=== PATIENT | female | born 1985 | race Caucasian/White ===

== ENCOUNTER 2018-02-24 20:31 | Emergency (ER) | payer OTHER ==
[~2018-02-24] VITALS: Ht 160 cm; Wt 95.7 kg
[2018-02-24 21:07] VITALS: Ht 160 cm; Wt 95.7 kg
[2018-02-24 22:03] LABS: PLATELET COUNT 332 x10^3mcL (130-400); RED CELL DISTRIBUTION WIDTH 13.5 % (11.5-14.5)
[2018-02-24 22:18] LABS: CALCIUM 8.5 mg/dL (8.5-10.1); CARBON DIOXIDE 23.8 mmol/L (21-32); CHLORIDE SERUM 107 mmol/L (98-107); CREATININE SERUM 0.8 mg/dL (0.6-1.0); GFR1 > 60 mL/min; GLUCOSE SERUM 106 mg/dL (74-106); POTASSIUM SERUM 3.5 mmol/L (3.5-5.1); SODIUM SERUM 142 mmol/L (136-145)
[2018-02-24 22:22] LABS: ALBUMIN 3.7 g/dL (3.4-5.0); ALKALINE PHOSPHATASE 78 U/L (46-116); ALT/SGPT 67 U/L (14-59); AMYLASE 40 U/L (25-115); AST/SGOT 39 U/L (15-37); BILIRUBIN TOTAL 0.73 mg/dL (0.20-1.00); LIPASE 91 IU/L (73-393)
[2018-02-24 22:27] LABS: BAND NEUTROPHIL 10 % (0-10); MONOCYTE 5 % (0-7); SEGMENTED NEUTROPHILS 75 % (37-75)
[2018-02-24 22:28] LABS: PLATELET MORPHOLOGY PLATELETS NORMAL; rbc morphology (normal/abnorm) NORMAL (NORMAL)
[2018-02-25 01:04] VITALS: BP 125/69
== END 2018-02-25 01:04 | disposition home or self-care (01) ==
LOC: ED 20:31
PROVIDERS: Specialist
DX: K59.00 Constipation, unspecified (principal); J45.909 Unspecified asthma, uncomplicated; Z98.890 Other specified postprocedural states; Z88.1 Allergy status to other antibiotic agents
CPT/HCPCS: J1885; J2405; J3010; J7030

== ENCOUNTER 2019-04-22 12:37 | Emergency (ER) | payer OTHER ==
[~2019-04-22] VITALS: Ht 160 cm; Wt 81.6 kg
[2019-04-22 12:40] VITALS: Ht 160 cm; Wt 81.6 kg
[2019-04-22 17:06] VITALS: BP 131/74
== END 2019-04-22 17:08 | disposition home or self-care (01) ==
LOC: ED 12:37
DX: J45.909 Unspecified asthma, uncomplicated (principal)
CPT/HCPCS: J1885; J7512; J7613; J7644; Q0092; Q0162